=== PATIENT | female | born 2000 | race Caucasian/White ===

== ENCOUNTER 2023-01-11 11:01 | Outpatient (CLI) | payer BC, SELFPAY | END 2023-01-11 11:02 | disposition home or self-care (01) | PROVIDERS: Visit Provider Nurse Practitioner Family | DX: J02.9 Acute pharyngitis, unspecified (principal); R30.0 Dysuria; N39.0 Urinary tract infection, site not specified | CPT/HCPCS: 87086; 87186 ==

== ENCOUNTER 2023-01-11 19:05 | Emergency (ER) | payer BC, OTHER, SELFPAY ==
[2023-01-11] VITALS (9 sets, daily range): BP systolic 100–123; BP diastolic 59–80; PULSE 104–150; RESP 18; TEMP 38–38.5; O2SAT 99–100
[2023-01-11 19:22] LABS: Appearance Urine Cloudy (Clear); Bilirubin Urine Negative (Negative); Blood Urine 2+ (Negative); Color Urine Yellow (Yellow); Glucose Urine Negative (Negative); Ketones Urine Negative (Negative); Leukocyte Esterase Urine 2+ (Negative); Nitrite Urine Negative (Negative); Protein Urine 2+ (Negative); Specific Gravity Urine 1.025 (1.000-1.030)
[2023-01-11 19:34] LABS: WBC Urine 50-100 (0-5)
[2023-01-11 19:35] LABS: Bacteria Urine Moderate; Squamous Epithelial Cell Urine Few (None-Few)
[2023-01-11] MEDS: 0.9 % SODIUM CHLORIDE 1000 ml 1,000 ML IV (20:00)
--- NOTE | 2023-01-11 20:04 | ED.GENADULT ---
HPI - General Adult General Chief complaint: Flank Pain Stated complaint: UTI, possible kidney infection Time Seen by Provider: 01/11/23 19:31 History of Present Illness HPI narrative: This 22-year-old female comes in with abdominal pain and flank pain and was seen in urgent care earlier today. She was diagnosed with the urinary tract infection and started 1 dose of Keflex. She comes in here because she is not feeling any better and in fact has tachycardia and fever. She states that her symptoms of dysuria were rather mild and started a couple weeks ago. She states that she is about 5 weeks and at that time and over the next few weeks she was thinking this might of had to do with her . However in the last 2 or 3 days she has had more symptoms and last night developed a fever. Related Data Previous Rx's Medication Instructions Recorded cephalexin 500 mg tablet 500 mg PO BID #14 tabs 01/11/23 Allergies Allergy/AdvReac Type Severity Reaction Status Date / Time sulfamethoxazole Allergy Mild Hives Verified 01/11/23 12:14 [From Bactrim] trimethoprim [From Bactrim] Allergy Mild Hives Verified 01/11/23 12:14 Review of Systems Status of ROS: Reports: 10 or more systems reviewed and unremarkable except as noted in History and below Narrative: Constitutional: No weight gain or loss. Fever since last night. Eyes: No discharge. No vision changes. HENT: No congestion, no sore throat, no ear pain. Cardiovascular: No chest pain, no palpitations. Respiratory: No shortness of breath, no wheezes, no cough. Gastrointestinal: No vomiting, no diarrhea. Lower abdominal pain and flank pain. Genitourinary: No dysuria, no hematuria. Musculoskeletal: Normal range of motion. Skin: No rashes, no pruritis. Neurological: No dizziness, weakness, sensory change, speech change. Endo/Heme/Allergies: No bruising or bleeding. No polydipsia. Pysch: no suicidality, no anxiety, no insomnia. All other systems reviewed and are negative. [facility] Medical History (Updated 01/11/23 @ 21:59 by Pierre Temple MD) UTI (urinary tract infection) ?N39.0 - Urinary tract infection, site not specified (ICD-10) Runny nose ?R09.89 - Other specified symptoms and signs involving the circulatory and respiratory systems (ICD-10) Dysuria ?R30.0 - Dysuria (ICD-10) Fever ?R50.9 - Fever, unspecified (ICD-10) Social History Smoking Status: Never smoker Exam Narrative: Exam Narrative: Constitutional: Well-developed, well-nourished, no acute distress. HEENT: Normocephalic, atraumatic. Neck: Normal range of motion. Nontender. Supple. Heart: Regular. No murmurs. Normal rate. Intact distal pulses. Lungs: Clear to auscultation. No chest discomfort. No wheezes, rhonchi, or rales. Abdomen: Normal bowel sounds. No rebound tenderness. Diffuse tenderness in the lower abdomen and flanks. Genitalia: Deferred. Back: No midline tenderness. Normal range of motion. Extremities: Normal range of motion. No injury. Skin: Intact. No rash. Warm. No erythema or pallor. Neurologic: No altered sensation. No weakness. Alert and oriented. Psychiatric: No suicidality. No anxiety or depression. No insomnia. Nursing notes and vitals signs are reviewed. Const: Vital Signs, click to edit/add: Vital Signs - 24 hr 01/11/23 19:21 01/11/23 19:49 01/11/23 20:30 Temperature 100.4 F H Pulse Rate 126 H 104 H Pulse Rate [Left P ulse Oximeter] 150 H Respiratory Rate 18 18 Blood Pressure 114/80 Blood Pressure [Ri ght Upper Arm] 123/73 Pulse Oximetry 99 99 100 Oxygen Delivery Me thod Room Air 01/11/23 20:45 01/11/23 21:00 01/11/23 21:11 Temperature 101.3 F H Pulse Rate 109 H 111 H 109 H Pulse Rate [Left P ulse Oximeter] Respiratory Rate 18 Blood Pressure 100/59 L Blood Pressure [Ri ght Upper Arm] Pulse Oximetry 100 100 99 Oxygen Delivery Me thod Course Vital Signs Vital signs: Initial Vital Signs Temperature 100.4 F H 01/11/23 19:21 Temperature Source Temporal Artery Scan 01/11/23 19:21 Pulse Rate 150 H 01/11/23 19:21 Pulse Rhythm Regular 01/11/23 19:21 Respiratory Rate 18 01/11/23 19:21 Blood Pressure 123/73 01/11/23 19:21 Blood Pressure Mean 89 01/11/23 19:21 Blood Pressure Position Sitting 10/18/23 19:21 Pulse Oximetry 99 01/11/23 19:21 Oxygen Delivery Method Room Air 01/11/23 19:21 Vital Signs Temperature 100.4 F H 01/11/23 19:21 Pulse Rate 150 H 01/11/23 19:21 Respiratory Rate 18 01/11/23 19:21 Blood Pressure 123/73 01/11/23 19:21 Pulse Oximetry 99 01/11/23 19:21 Oxygen Delivery Method Room Air 01/11/23 19:21 Temperature 101.3 F H 01/11/23 21:11 Pulse Rate 109 H 01/11/23 21:11 Respiratory Rate 18 01/11/23 21:11 Blood Pressure 100/59 L 01/11/23 21:11 Pulse Oximetry 99 01/11/23 21:11 Oxygen Delivery Method Room Air 01/11/23 19:21 Medical Decision Making MDM Narrative Medical decision making narrative: This patient comes in with fever and tachycardia with an established urinary tract infection. She has taken 1 dose of Keflex but comes in because of these symptoms. An IV was established and she received a L of normal saline intravenously. Lab results returned with evidence of urinary tract infection on urinalysis. Her white count is a bit elevated at 12.7. Her lactate returns at 0.6. The patient did receive a g of Rocephin intravenously after blood cultures are acquired. She also received 15 mg of Toradol for back pain. An additional 500 mL of normal saline was administered intravenously. A this patient is okay to be discharged home and does have the remaining course of Keflex that she can continue. Blood culture results of course are pending. Lab Data Labs: Lab Results 01/11/23 01/11/23 01/11/23 Range/Units 19:15 20:00 21:22 WBC 12.69 H (4.50-11.00) K/uL RBC 4.22 (4.00-5.20) m/uL Hgb 13.0 (12.0-16.0) gm/dL Hct 38.5 (33.0-51.0) % MCV 91 (80-100) fL MCH 31 (26-34) pg MCHC 34 (32-36) gm/dL RDW Coeff of Antonina 11.5 (11.5-15.5) % Plt Count 218 (140-440) K/uL Neut % (Auto) 83.8 H (42.0-72.0) % Lymph % (Auto) 7.1 L (20-44) % [place] % (Auto) 8.7 (0.0-11.0) % Eos % (Auto) 0.1 (0.0-7.0) % Baso % (Auto) 0.1 (0.0-3.0) % Neut # (Auto) 10.60 H (1.7-7.0) K/uL Lymph # (Auto) 0.90 (0.90-2.90) K/uL [place] # (Auto) 1.10 H (0.00-0.90) K/UL Eos # (Auto) 0.00 (0.00-0.50) K/uL Baso # (Auto) 0.00 (0.00-0.30) K/uL Abs Immat Gran (auto) 0.00 (0.00-0.30) K/uL Imm/Tot Granulo (auto) 0.2 % Sodium 133 L (135-149) mmol/L Potassium 3.5 L (3.6-5.1) mmol/L Chloride 98 (96-114) mmol/L Carbon Dioxide 22 (20-32) mmol/L Anion Gap 13 (7-15) mEq/L BUN 6 (5-24) mg/dL Creatinine 0.6 (0.5-1.5) mg/dL Estimated GFR 128 ml/min Glucose 110 (60-115) mg/dL Lactate 0.6 (0.5-1.9) mmol/L Calcium 9.3 (8.4-10.6) mg/dL C-Reactive Protein 8.9 H (0.5-1.0) mg/dL Urine Color Yellow (Yellow) Urine Appearance Cloudy A (Clear) Urine pH 6.0 (5.0-8.5) Ur Specific [place] 1.025 (1.000-1.030) Urine Protein 2+ A (Negative) Urine Glucose (UA) Negative (Negative) Urine Ketones Negative (Negative) Urine Blood 2+ A (Negative) Urine Nitrite Negative (Negative) Urine Bilirubin Negative (Negative) Urine Urobilinogen 1.0 (0.2-1.0) Ur Leukocyte Esterase 2+ A (Negative) Urine RBC 10-25 A (0-2) Urine WBC 50-100 A (0-5) Ur Squamous Epith Cells Few (None-Few) Urine Bacteria Moderate A (None) Discharge Plan Discharge Clinical Impression: UTI (urinary tract infection) Patient Disposition: Home w/ Parent or Adult Condition: Stable Additional Instructions: Take medications as prescribed. Follow up with MD or return if symptoms are persistent or worsening. Prescriptions: No Action cephalexin 500 mg tablet 500 mg PO BID Qty: 14 0RF Follow Up/Referrals: Provider,Not a Local [Primary Care Provider] - Stand Alone Forms: [employer] Info Instructions
[2023-01-11 20:15] LABS: Basophils Percent Auto 0.1 % (0.0-3.0); Eosinophils Percent Auto 0.1 % (0.0-7.0); Hematocrit 38.5 % (33.0-51.0); Immature Granulocytes Pct Auto 0.2 %; Lymphocytes Percent Auto 7.1 % (20-44); Mean Corpuscular HGB Conc 34 gm/dL (32-36); Mean Corpuscular Hemoglobin 31 pg (26-34); Mean Corpuscular Volume 91 fL (80-100); Monocytes Percent Auto 8.7 % (0.0-11.0); Neutrophils Percent Auto 83.8 % (42.0-72.0); Platelet Count* 218 K/uL (140-440); RDW Coefficient of Variation % 11.5 % (11.5-15.5); Red Blood Count 4.22 m/uL (4.00-5.20); White Blood Count* 12.69 K/uL (4.50-11.00)
[2023-01-11 20:16] LABS: Slide Review Reflex No
[2023-01-11] MEDS: cefTRIAXone 1 GM in 0.9 % SODIUM CHLORIDE Mini-bag 100 ML IVPB (20:18)
[2023-01-11] MEDS: ACETAMINOPHEN 500 MG TABLET 1000 MG PO (20:18)
[2023-01-11 20:33] LABS: Chloride* 98 mmol/L (96-114); Potassium* 3.5 mmol/L (3.6-5.1); Sodium* 133 mmol/L (135-149)
[2023-01-11 20:36] LABS: Anion Gap 13 mEq/L (7-15); Blood Urea Nitrogen* 6 mg/dL (5-24); Carbon Dioxide* 22 mmol/L (20-32); Creatinine* 0.6 mg/dL (0.5-1.5); Estimated Glomerular Filt Rate 128 ml/min; Glucose* 110 mg/dL (60-115)
[2023-01-11 20:37] LABS: Calcium* 9.3 mg/dL (8.4-10.6)
[2023-01-11 20:39] LABS: C Reactive Protein* 8.9 mg/dL (0.5-1.0)
[2023-01-11 21:24] LABS: Lactate* 0.6 mmol/L (0.5-1.9)
[2023-01-11] MEDS: 0.9 % SODIUM CHLORIDE 500 ML 500 ML IV (21:48)
== END 2023-01-11 22:05 | disposition home or self-care (01) ==
PROVIDERS: Emergency Provider Emergency Medicine Emergency Medical Services
DX: N39.0 Urinary tract infection, site not specified (principal)
CPT/HCPCS: 36415; 80048; 81001; 83605; 85025; 86140; 87040; 87086; 87186; 96365; 99284; A9270; J0696; J7030; J7120

== ENCOUNTER 2023-02-06 08:08 | Outpatient (CLI) | payer BC, OTHER, SELFPAY ==
--- NOTE | 2023-02-06 08:15 | CRLHL7_ITS ---
For Patients: As a result of the Cures Act, medical imaging exams and procedure reports are released immediately into your electronic medical record. You may view this report before your referring provider. If you have questions, please contact your health care provider. INDICATION: First trimester scan, establish dates. COMPARISON: None. TECHNIQUE: Real-time bah-scale imaging of the pelvis was performed. FINDINGS: Sonographic imaging demonstrates a single living intrauterine gestation. The embryo demonstrates a regular cardiac rate measuring 161 beats per minute. The embryo`s crown-rump length measurement of 1.5 cm corresponds to a gestational age of 7 weeks 6 days with a sonographic due date of 09/19/2023. There is a normal-appearing yolk sac. There are no gross abnormalities noted within the embryo at this early state of development. The gestational sac has a normal appearance. There is a right-sided perigestational hemorrhage measuring 1.8 x 1.2 x 0.8 cm and a 2nd right-sided perigestational hemorrhage measuring 2.2 x 1.0 x 0.8 cm. The amount of fluid within the sac appears appropriate for gestational age. The cervix is closed. The myometrium appears normal. The ovaries are of normal size. There are no suspicious fluid collections noted in the cul-de-sac. IMPRESSION: Single living intrauterine with sonographic gestational age 7 weeks 6 days and sonographic due date 09/19/2023. Two right-sided subchorionic hemorrhages measuring 1.8 cm and 2.2 cm. Dictated by Ralph Malave MD @ 02/06/2023 8:50:06 AM (Electronically Signed)
== END 2023-02-06 08:09 | disposition home or self-care (01) ==
LOC: US 08:09
PROVIDERS: Visit Provider Advanced Practice Midwife
DX: Z34.91 Encounter for supervision of normal pregnancy, unspecified, first trimester (principal); O20.9 Hemorrhage in early pregnancy, unspecified; Z3A.01 Less than 8 weeks gestation of pregnancy
CPT/HCPCS: 76817; 82306; 86703; 86706; 86803; 86850; 86900; 86901; 87086; 87340

== ENCOUNTER 2023-02-06 09:03 | Outpatient (CLI) | payer BC, OTHER, SELFPAY | END 2023-02-06 09:04 | disposition home or self-care (01) | PROVIDERS: Visit Provider Advanced Practice Midwife | DX: Z34.91 Encounter for supervision of normal pregnancy, unspecified, first trimester (principal); Z3A.08 8 weeks gestation of pregnancy | CPT/HCPCS: 82306; 86592; 86703; 86704; 86706; 86762; 86787; 86803; 86850; 86900; 86901; 87086; 87340 ==

== ENCOUNTER 2023-04-27 09:20 | Outpatient (CLI) | payer BC, OTHER, SELFPAY ==
--- NOTE | 2023-04-27 09:30 | CRLHL7_ITS ---
For Patients: As a result of the Century Cures Act, medical imaging exams and procedure reports are released immediately into your electronic medical record. You may view this report before your referring provider. If you have questions, please contact your health care provider. INDICATION: Evaluate anatomy. COMPARISON: none TECHNIQUE: Real time bah scale imaging of the fetus was performed as well as color Doppler analysis of the umbilical vessels. FINDINGS: Sonographic imaging demonstrates a single living intrauterine gestation. Fetus demonstrates a regular cardiac rate of 142 beats per minute. Fetus has a variable position. The placenta lies anteriorly without evidence of placenta previa. Placental edge 4.5 cm from the internal cervical os. Amniotic fluid volume appears normal. Single deepest vertical pocket: 4.6 cm. The cervix is closed and measures 4.2 cm in length. The composite ultrasound gestational age is calculated at 19 weeks 4 days with an estimated sonographic due date of 09/17/2023. The estimated weight is 296 grams which lies at the 20th %. The following biometric measurements were obtained: Biparietal diameter: 4.3 cm/19 weeks 0 days 13th% Head circumference: 16.8 cm/19 weeks 3 days 18th% Abdominal circumference: 13.4 cm/18 weeks 6 days 14th% Femur length: 3.3 cm/20 weeks 1 day 50th% The HC/AC ratio measures: 1.25 range (1.08-1.26) On anatomic survey, there is a normal appearance of the cerebral ventricles, cavum septi pellucidi, cisterna magna and cerebellum. The nose, lips, and facial profile appear normal. The cervical, thoracic and lumbar spine are well visualized and appear normal. There is an echogenic focus within the left ventricle. The left and right ventricular outflow tracts appear normal. The diaphragm and stomach appear normal. The kidneys and bladder also appear normal. There is a normal three-vessel cord and cord insertion site. The four extremities appear normal. IMPRESSION: Concordance of clinical and sonographic dating. Echogenic focus within the left ventricle. Incomplete visualization of the profile due to position. Short-term follow-up versus level 2 ultrasound recommended. Remainder of the anatomic survey is normal. Dictated by Ralph Malave MD @ 04/27/2023 12:05:57 PM (Electronically Signed)
== END 2023-04-27 09:21 | disposition home or self-care (01) ==
LOC: US 09:20
PROVIDERS: Visit Provider Advanced Practice Midwife
DX: Z34.92 Encounter for supervision of normal pregnancy, unspecified, second trimester (principal); Z3A.19 19 weeks gestation of pregnancy
CPT/HCPCS: 76805

== ENCOUNTER 2023-05-24 07:16 | Outpatient (CLI) | payer BC, OTHER, SELFPAY ==
--- NOTE | 2023-05-24 07:15 | US_ITS ---
Patient: DULCE DOYLE Facility:?[facility] Patient ID:?[id number] Site Patient ID:?[id number]. Site :?[id number] Study:?US-OB Pelvis f/u missing images-05/24/2023 8:04:53 AM Ordering Physician:NATHALIA Final Report: INDICATION: Follow-up profile COMPARISON: 04/27/2023 TECHNIQUE: Real time bah scale imaging of the fetus was performed. FINDINGS: Sonographic imaging demonstrates a single living intrauterine gestation. Fetus demonstrates a regular cardiac rate of 141 beats per minute. Fetus has a vertex position. The placenta lies anteriorly. Amniotic fluid volume appears normal. Normal profile. Echogenic focus within the left ventricle is less noticeable on the current study and may represent normal anatomy. IMPRESSION: Normal profile. Decreased conspicuity of the echogenic left ventricular focus. Dictated by Ralph Malave MD @ 05/24/2023 12:15:44 PM Signed by:?Ralph Malave MD @05/24/2023 12:15:44 PM (Electronic Signature)
== END 2023-05-24 07:17 | disposition home or self-care (01) ==
LOC: US 07:17
PROVIDERS: Visit Provider Advanced Practice Midwife
DX: Z34.90 Encounter for supervision of normal pregnancy, unspecified, unspecified trimester (principal)
CPT/HCPCS: 76816

== ENCOUNTER 2023-06-19 08:48 | Outpatient (CLI) | payer BC, OTHER, SELFPAY | END 2023-06-19 08:49 | disposition home or self-care (01) | LOC: NFLDREF 06-23 08:10 | PROVIDERS: Visit Provider Advanced Practice Midwife | DX: Z34.02 Encounter for supervision of normal first pregnancy, second trimester (principal); Z3A.27 27 weeks gestation of pregnancy | CPT/HCPCS: 82306; 82728; 86592 ==

== ENCOUNTER 2023-07-18 11:43 | Outpatient (RCR) | payer BC, SELFPAY ==
--- NOTE | 2023-07-13 09:32 | PC.NURSE ---
Diagnosis: VERO in
--- NOTE | 2023-07-13 13:34 | URNOTE ---
Request received for authorization for?Iron Dextran (Infed) ([id number]). Prior authorization is not required per primary insurance [facility] Ref#[id number], date range: 07/11/2023 to 09/07/2023, 1 visit. Secondary insurance R reports Prior authorization is not required Ref#[id number].
[2023-07-18] MEDS: 0.9 % SODIUM CHLORIDE 250 ml IV (12:25)
[2023-07-18] MEDS: SODIUM CHLORIDE 0.9 % (FLUSH) 10 ML SYRINGE IVF (12:25)
[2023-07-18 12:31] VITALS: BP 97/64; PULSE 93; RESP 16; TEMP 36.9; O2SAT 98
[2023-07-18] MEDS: IRON DEXTRAN COMPLEX 25 MG in 0.9 % SODIUM CHLORIDE 100 ml 100 ML 400 MG IVPB (12:34)
[2023-07-18 13:10] VITALS: BP 96/62; PULSE 92; RESP 16; TEMP 36.8; O2SAT 97
[2023-07-18 13:38] VITALS: BP 92/61; PULSE 90; RESP 16; TEMP 36.8; O2SAT 97
[2023-07-18] MEDS: IRON DEXTRAN COMPLEX 975 MG in 0.9 % SODIUM CHLORIDE 250 ml 250 ML 269.5 MG IVPB (13:52)
[2023-07-18 14:52] VITALS: BP 95/60; PULSE 86; RESP 16; TEMP 36.8; O2SAT 97
[2023-07-18 15:29] VITALS: BP 96/61; PULSE 86; RESP 16; TEMP 36.8; O2SAT 97
== END 2024-01-14 23:59 | disposition home or self-care (01) ==
LOC: CCIC 11:43
PROVIDERS: PCP Family Medicine; Visit Provider Clinical Nurse Specialist
DX: D50.9 Iron deficiency anemia, unspecified (principal)
CPT/HCPCS: 96365; 96366; J1750; J7050

== ENCOUNTER 2023-08-22 15:24 | Outpatient (CLI) | payer BC, OTHER, SELFPAY | END 2023-08-22 15:25 | disposition home or self-care (01) | LOC: NFLDREF 15:26 | PROVIDERS: PCP Family Medicine; Visit Provider Advanced Practice Midwife | DX: O99.013 Anemia complicating pregnancy, third trimester (principal) | CPT/HCPCS: 82728; 87081; 87653 ==

== ENCOUNTER 2023-09-21 17:09 | Inpatient (IN) | payer BC, OTHER, SELFPAY ==
[2023-09-21] VITALS (17 sets, daily range): BP systolic 101–119; BP diastolic 62–73; PULSE 63–114; RESP 16; TEMP 37; O2SAT 90–100; BMI 31.0
[2023-09-21] MEDS: OXYTOCIN 10 UNIT/ML INJ IM (18:15)
[2023-09-21] MEDS: IBUPROFEN 600 MG TABLET PO (18:27)
[2023-09-21] MEDS: miSOPROStoL 800 MCG/4 TABLET PR (18:32)
[2023-09-21] MEDS: lidocaine HCL 2 % JELLY (TOP) STERILE 6 ML TOPICAL ×2 (18:41→19:13)
[2023-09-21] MEDS: fentaNYL 100 MCG/2 ML inj 50 MCG IVP (19:07)
[2023-09-21] MEDS: LACTATED RINGERS 1000 ML 1,000 ML IV (19:11)
[2023-09-21] MEDS: LIDOCAINE 1 % PF 30 ML INJECTION (19:13)
--- NOTE | 2023-09-21 20:11 | P.LDBA_ITS ---
Subjective History of Present Illness Date Seen: 09/21/23 Narrative: Adrianna is being admitted to Labor and Delivery for active labor. She is a 23 year old at 41.0 weeks gestation. Her full history and physical was dictated by Angelo Sung CNM on 08/29/23. Please see this for details. Adrianna labored at home for most of the starting to contract around 0500 this morning. She became more active around 1540 and was coping well at home supported by her sister in law and her . She experienced SROM at home at 1610 and decided to make her way in to the hospital. She was beginning to feel like she was involuntarily pushing on the drive in. I arrived shortly after she arrived and she was pushing at that time. Specific Issues/Plans center RN : Ajay H&P 08/29/23 by Angelo Sung CNM # Hx recurrent UTIs. x1 before NOB # Varicella non immune # Echogenic foci in left ventricle and no profile due to position. Mat21: negative Repeat US profile views obtained, foci less prominent. # Anemia. Hgb normal, low ferritin. Iron transfusion at 31 weeks. Hgb and ferritin at 36 weeks: Flu: completed, patient is employee in the Center, hasn't shown up in [facility] yet Covid: initial series, declines booster Tdap: declined, 07/05/2023 32wk Mental Health: 34wk Hgb: 07/19/2023 OB - Problem Based A/P Additional Plan (1) Pain during labor: Status: Acute (2) 41 weeks gestation of : Status: Acute Plan ASSESSMENT:? at 41.0 weeks gestation? GBS negative? ?compilcated by: varicella non-immune, echogenic foci in left ventricle, and amenia Elevated BP on admit? Postterm IOL? Blood type:? PLAN:? 1. Desires water . Consent signed. Hep C negative.? 2. Candidate for analgesia of choice. Planning unmedicated .? 3. Anticipate ? 4. Expectant management at this time.? 5. No IV needed at this time. Consider if patient condition changes. 6. Continuous monitoring until reactive tracing is obtained. Delivery/Labor/Induction Plan Plan: expectant management OB Result Labs Blood Type: O (+) positive GBS Status: negative OB Exam Physical Exam Vital signs: Pulse BP Pulse Ox 114 H 119/69 100 09/21/23 20:03 09/21/23 20:03 09/21/23 18:48 Narrative: Psychiatric:? Alert and oriented x3? HEENT:? Normocephalic, atraumatic? Neck:? Supple without adenopathy or thyromegaly? Lungs:? Clear to auscultation bilaterally? Heart:? Regular rate and rhythm, no murmur, rub or gallop? Abdomen:? Soft, nontender, and gravid? Extremities:? No edema or erythema Detailed Labor and Delivery Exam Patient Gravid: Yes Dilation (cm): 10 Effacement (%): 100 Contraction Frequency: 2-3 min Contraction intensity: Strong/Firm Fetus (Single) Station: +2 Amniotic Membrane Status: SROM Amniotic Membrane Fluid Description: Clear Heart Rate Baseline: 140 Monitor Accelerations: Present Monitor Decelerations: Variable (with pushing) Sanitary Aide Variability: Moderate (6-25)
[2023-09-21] MEDS: ACETAMINOPHEN 500 MG TABLET 1000 MG PO (20:15)
--- NOTE | 2023-09-21 20:19 | P.OBCN_ITS ---
OB - CN: HPI Date of Consult Time Seen by Provider: 20:19 Date Seen: 09/21/23 Consult date: 09/21/23 Requesting Physician: Niru Sung CNM Primary Care Provider: Milena Meza MD Consult Narrative Narrative: Adrianna is a 23-year-old at 41 weeks 0 days gestational age who was admitted with spontaneous onset of labor. She had a normal spontaneous vaginal delivery with Niru Sung CNM. Ob consultation was requested in the setting of suspected third-degree perineal laceration. I presented the bedside, where physical exam was performed. A shallow 3A degree laceration was identified with tearing only of the external anal sphincter capsule and minimal sheering of the muscle itself. Findings were relayed to Adrianna, where we discussed potential analgesic measures. Ultimately, we proceeded with IV placement to administer Fentanyl, topical lidocaine and injection of 1% plain lidocaine as well. Third-degree laceration repair completed as below. History History 1 Elective abortions Para 0 Spontaneous abortions Hx # Term Pregnancies Ectopic pregnancies Hx # Pregnancies Multiple births Number of Living Children 0 Labs GBS status: negative OB Labs: Lab Assessment Start: 09/21/23 18:20 Freq: ONCE Status: Active Protocol: PC.OBGBS Activity Type Activity Date Activity User E-sign Co-sign Detail Recorded Client Recorded Date Recorded By Document 09/21/23 19:43 ABP [id number] 09/21/23 19:43 ABP 09/21/23 19:43 Lab Assessment GBS Status negative GBS Additional Criteria None No Treatment Needed OK Are Labs Available Yes Maternal Blood Type O Maternal RH Factor Positive Evaluate Maternal Rubella Immune Status Immune Hepatitis B Surface Antigen Negative Maternal HIV Status Negative Maternal Syphillis (RPR) Status Negative [facility] Medical History UTI (urinary tract infection) ?N39.0 - Urinary tract infection, site not specified (ICD-10) Surgical History [place] teeth removed ?K08.409 - Partial loss of teeth, unspecified cause, unspecified class (ICD- 10) Family History Paternal Grandfather Prostate cancer Heart disease Maternal Grandfather Colon cancer Heart disease Maternal Grandmother Heart disease Paternal Grandmother Brain cancer Social History Narrative: SOCIAL Education: bachelors Work: center RN Partner: Ajay haney Lives with: Pets: none Abuse: Denies past Special Diet: Denies Ok with a blood transfusion: yes Culture or restoration beliefs: denies RISK FACTORS Exercise Times/wk: walking Depression/Anxiety: denies ELFEGO: 4 PHQ 9: 4 Seat Belt Use: Routinely Smoking: Denies past/present Alcohol/day: Denies while Caffeine: occasionally Drug Use: Denies past/present Chicken Pox: vaccinated MRSA: Denies What is your current living situation?: I presently have a place to live Problems where you live: no known problems In the past 12 months, utilities in danger of being shut off: no In past 12 months, lack of transportation kept you from medical appts, meetings, work, or getting things needed for daily living: no In the past 12 mos, have been you worried that your food would run out before yo u had money to buy more?: never true In the past 12 mos, the food you bought just didn't last and you didn't have money to buy more?: never true Smoking Status: Never smoker Do you use any of these nicotine containing products: None How often do you have a drink containing alcohol: never AUDIT-C Alcohol total score: 0 Non-prescribed substance use: denies use How often does anyone, including family, friends and others, physically hurt you : never How often does anyone, including family, friends and others, insult or talk down to you: never How often does anyone, including family, friends and others, threaten you with harm: never How often does anyone, including family, friends and others, scream or curse at you: never Little interest or pleasure in doing things: not at all Feeling down, depressed, or hopeless: not at all Meds Home Medications and Allergies Home Medications ?Medication ?Instructions ?Recorded ?Confirmed ?Type Saccharomyces boulardii 250 mg 250 mg PO BID 02/06/23 09/20/23 History capsule (Daily Probiotic (S. boulardii)) biotin 5 mg capsule 5 mg PO QDAY 02/06/23 09/20/23 History omega-3 fatty acids 500 mg capsule 500 mg PO QDAY 02/06/23 09/20/23 History vits no.126-ferrous fum 1 tab PO QDAY 02/06/23 09/20/23 History 28 mg iron-folic acid 800 mcg tablet (Classic ) ferrous sulfate 27 mg iron tablet 27 mg PO QDAY 07/17/23 09/20/23 History Allergies Allergy/AdvReac Type Severity Reaction Status Date / Time sulfamethoxazole Allergy Mild Hives Verified 09/20/23 10:29 [From Bactrim] trimethoprim [From Bactrim] Allergy Mild Hives Verified 09/20/23 10:29 OB - H&P: Exam Physical Exam: Vital signs: Pulse BP Pulse Ox 78 115/67 100 09/21/23 20:13 09/21/23 20:13 09/21/23 18:48 Narrative: General: Alert and oriented, moderate distress due to pain Perineum: Exam notable for laceration in the distal vagina extending to mill oiler ior perineum. With adequate pain control, more thorough exam did reveal separation of the external anal sphincter capsule and sheering of the external anal sphincter musculature, <10%. Internal anal sphincter was noted to be intact. The overlying skin was torn to about 1cm above the anal verge. Explained that my findings are most consistent with a 3A laceration, pain control was achieved with IV fentanyl, topical lidocaine and 1% lidocaine injection (15mL total). The torn edges of the external anal sphincter and capsule were grasped and brought together in the midline with a interrupted [id number] stitch wi2-0 vicryl in an end-to-end fashion. Excellent reapproximation of the torn capsule and muscular sheering was obtained. Several deep interrupted sutures of 2-0 vicryl were then placed to reapproximate the deep vaginal tissue. A 3-0 vicryl was then used in a running fashion to close the vaginal mucosa, with crown stitch applied at the perineum and down the posterior perineum. The same stitch was then run up the posterior perineum in a running subcuticular fashion to reapproximate the skin. Stitch was tied just inside the hymenal ring. Exam at the conclusion confirmed that there were no mucosal defects and no suture in the rectum. Global perineal exam was then completed. Deep left labial laceration was noted with small volume bleeding. A deep [id number] was applied with 3-0 vicryl to close the deep defect. A single subcuticular stitch was applied to reapproximate torn skin edges with 3-0 vicryl. Patient tolerated the procedure well. Excellent hemostasis was noted. Sponge, instrument, and needle counts were correct at the conclusion. OB - CN: A/P Assessment and Plan (1) Type 3a perineal laceration: Status: Acute Plan Adrianna is a 23yo who is s/p uncomplicated . Ob was consulted for repair of 3A laceration. The 3A laceration was very shallow, where the external anal sphincter capsule was with <10% muscle sheering. Unremarkable 3A laceration repair performed in layers. Small deep labial laceration was repaired as well. Excellent hemostasis noted. Care was returned to primary service, Niru Sung CNM. - Discussed routine perineal cares (ceasar bottle, murali ellis ermoplast) - Ibuprofen/tylenol for pain control. Consider narcotics only for breakthrough pain. - No antibiotics indicated - Recommend bowel regimen with senokot-S or alternative for at least 2 weeks - Consider perineal check prior to dismissal and at 2 week visit with any acute concerns
--- NOTE | 2023-09-21 20:20 | W.PM.OBVAGDE ---
OB Procedure Vag Delivery Mother Details Mother Details: The patient is a 23 year-old, 1, Para 0, admitted on 09/21/23 at 41.0Days gestation. : 1 Para: 1 Weeks Gestation: 41.0 Admission Date: 09/21/23 Additional Details Amniotic Membrane Status: SROM Amniotic Membrane Rupture Date: 09/21/23 Amniotic Membrane Rupture Time: 16:10 Amniotic Membrane Fluid Description: Clear Analgesia/Anesthesia Type: None (nitrous and fentanyl used for repair only ) Waterbirth: Yes Pitcoin: Yes (AMSTL) Intrapartal Events: None Labor Onset: 15:40 Complete: 17:26 Pushin:45 (involuntarily in the car ride here) Heart: heart tones during second stage were category 2 tracing. Difficult to trace in second stage due to maternal position. Tracing was very interrupted but occasional decreases in the heart rate were heard with pushing with good variability and good return to baseline Delivery Details Delivery Date: 09/21/23 Delivery Time: 18:01 Route of delivery: Infant Gender: Female Viability: Alive; Heart Rate Present Position at Delivery: OA Delivery Details: Patient was admitted for active labor and progressed normally. SROM noted at home at 1610 with clear fluid. Patient was complete at 1610. She was involuntrayl pushing in the car on her was to the hospital at 1645. of a viable female at 1801 in hands and knees in the tub. Vertex delivered OA. No nuchal cord or shoulder. Body delivered easily and without incident. passed to mothers abdomen with a vigorous cry. Cord was clamped and cut at > 5 minutes. APGARS were 7 at one minute and 8 at five minutes respectively. Mouth was bulb suctioned. Intact placenta with a 3 vessel cord delivered spontaneously at 1813. Fundus firm. A very shallow 3A laceration identified in consultation with Dr. Salinas and was repaired by her. See her note for details. QBL 275mL in the drape and 200mL EBL in the tub for a total of 475mL. Mother and baby stable; mother plans to breastfeed. weight pending.? 1 Minute Interval Total Score: 7 5 Minute Interval Total Score: 8 Additional Details Shoulder Dystocia: No Placenta Delivery Time: 18:13 Placental Delivery Description: Spontaneous Delivery repair: Vicryl Procedure Done: Global Blood Loss: 475 Laceration: Perineal - 3rd Degree (and a 2nd degree periurethral) Episiotomy Description: None Blood Loss Measurement Type: EBL Bakri Used: No Sponge/Need Count Correct: Yes Cord Vessel Description: 3 Vessels Event Summary Status: Mother and were stable after delivery. Disposition: floor
[2023-09-22] MEDS: IBUPROFEN 600 MG TABLET PO ×4 (01:17→22:08)
[2023-09-22 03:35] VITALS: BP 105/71; PULSE 64; RESP 16; TEMP 36.8; O2SAT 96
[2023-09-22] MEDS: ACETAMINOPHEN 500 MG TABLET 1000 MG PO ×3 (04:16→19:17)
[2023-09-22 04:45] LABS: Hemoglobin* 12.2 gm/dL (12.0-16.0)
[2023-09-22] MEDS: OXYTOCIN 30 unit/500 ML in NS 30 UNIT/500 ML BAG 150 UNIT IVPB (04:45)
[2023-09-22 06:00] VITALS: BP 95/61; PULSE 70; RESP 16; O2SAT 94
[2023-09-22] MEDS: miSOPROStoL 800 MCG/4 TABLET PR (07:07)
--- NOTE | 2023-09-22 07:20 | P.OBPN_ITS ---
OB - PN:Subj Subjective Time Seen by Provider: 06:30 Date Seen: 09/22/23 Narrative: Adrianna is a 23yo seen on PPD1 from complicated by 3A laceration. Immediately she had mild intermittent atony that responded well to IM Pitocin and buccal cytotec. I was alerted by bedside RN of possibly increased bleeding in the state about 0415. She described a trickle with fundal checks and more blood staining on pads than typical but notes this is difficult to distinguish from fluid from ice packs. She notes vitals are within normal limits, patient is feeling well. She is not passing any clots. She has but up to ambulate without dizziness or lightheadedness. Voids without difficulty. PVR via bladder scan was 140 mL, where patient had minimal output on repeat would attempt. We discussed options for management, ultimately proceeded with 30 units of Pitocin LR and a hemoglobin to help obtain an objective measure of blood loss. Bedside RN called me again at 0620, where Adrianna has started to feel weak. Repeat vitals were obtained were her blood pressure was slightly lower, normal MAP, HR of 70bpm. She continues to have of a trickle sensation with movements and passed several small clots on last fundal check. I presented to the bedside, where for confirms the above history. She notes that she does not have specific dizziness or lightheadedness, rather just feels weak as she is ambulating or sitting for items. Denies chest pain or dyspnea. 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 Her most recent pad was inspected, where there is dark vaginal bleeding noted (roughly half of a dollar bill size) and two clots about the size of a nickel. OB - PN: Obj Exam Physical Exam: Vital signs: Temp Pulse Resp BP Pulse Ox O2 Del Method 98.6 F 77 16 103/73 97 Room Air 09/21/23 22:20 09/21/23 22:20 09/21/23 22:20 09/21/23 22:20 09/21/23 22:20 09/21/23 22:20 Narrative: General: Alert and oriented, in no acute distress. Appropriate to conversation. Abdomen: Fundus palpates at 1-2 above umbilicus, firm. Transabdominal ultrasound was performed, where the fundal and mid uterine endometrial stripe is very thin and homogeneous in appearance. Endometrial canal distends as you move inferiorly, where there is about a 2 cm collection of suspected blood clot throughout the lower uterine segment. No internal vascularity on Doppler assessment. Bladder is largely decompressed. Characteristic images were obtained to be scanned in the patient's chart. Pelvic: External genital exam is within normal limits. Third degree laceration and left labial lacerations are well approximated and intact. Mild edema, slight ecchymosis at distal perineal repair. Both incisions were inspected thoroughly where no bleeding is noted from incisions. I started by performing a fundal massage, where trickle of dark red blood was noted. Recommended we proceed to a bimanual exam with likely sweeping of the lower uterine segment, consent obtained. Bimanual exam reveals excellent uterine tone aside from lower uterine segment, where clot could be easily swept free of MAAME. Approximately 15 0 mL clot was expressed subsequent to this exam, no active trickle to follow. Brief TAUS was again performed, where there is improvement in the MAAME clot burden. A second bimanual exam and sweep was performed, followed by rigorous fundal massage. No appreciable return of clot or bleeding resulted. Hemostasis is appropriate for state. Recommend we continue IV pitocin bag and administer rectal cytotec for MAAME atony. Cytotec 800mcg administered ID. OB - PN: Obj Data Labs Labs: Laboratory Results - last 24 hr 09/22/23 04:35 Hgb 12.2 OB - PN: A/P Delivery Assessment and Plan (1) Type 3a perineal laceration: Status: Acute (2) Pain during labor: Status: Acute (3) 41 weeks gestation of : Status: Acute Plan [place] is a 23-year-old seen on day 1 from [facility]. Delivery was complicated by 3A laceration without a complicated repair. Immediately she had mild intermittent atony, treated with IM Pitocin and buccal cytotec. She has had increased vaginal bleeding for about 2 hours. Objective a ssessment has been limited by inability to have reliable pad weights due to concurrent leakage of fluid from ice pack. One pad was available for my review, which was suggestive of appropriate lochia - the previous pads were noted to have more blood loss. On my exam, patient is hemodynamically stable and well-appearing. Vital signs reviewed and are within normal limits, where her blood pressures are normal and heart rate is in the 70s. She denies dizziness or lightheadedness with ambulation, but does have an overall sense of weakness. Hemoglobin at 0430 was 12.2 (from 13.1 on 08/21). Transabdominal ultrasound was notable for uterine segment atony. Bimanual exam and lower uterine segment sweep was performed, with return of about 150 mL clot. Rigors fundal massage and a 2nd sweep was performed where minimal return of lochia. She has no active bleeding from the uterus nor her incisions. Plan to complete the previously initiated bag of Pitocin and 800 mcg rectal Cytotec were administered. Plan single dose of ancef 2g IV for antibiotic prophylaxis following MAAME sweep. If she continues to have increased bleeding, signs/symptoms of anemia or other concerns I recommend repeat evaluation. SBAR provided to Niru Sung and Enedina Guaman, on-call providers today. Specifically discussed that we could consider trending her hemoglobin or proceeding to a formal pelvic ultrasound to better exclude likelihood of retained products of conception. My suspicion for retained POC is low at this time, based on my transabdominal ultrasound performed now and inspection of the placenta post delivery. Patient expressed understanding and is agreeable to plan. All questions answered.
[2023-09-22] MEDS: CEFAZOLIN 2 GM in 0.9 % SODIUM CHLORIDE Mini-bag 100 ML IVPB (07:59)
--- NOTE | 2023-09-22 08:26 | P.OBPN_ITS ---
OB - PN:Subj Subjective Time Seen by Provider: 08:26 Date Seen: 09/22/23 Patient comments OB post-: tolerating diet and flatus present [place] infant status: and doing well [place] feeding status: exclusively Narrative: Adrianna is doing well at this time. She is feeling weak with movements and is somewhat pale but states that she is feeling better. She denies clots and bleeding is WNL. She would like to take a bath this morning and was encouraged to have someone with her during this. Will repeat labs at 1800 tonight unless her symptoms increase or are not starting to improve before then. Will plan for discharge home tomorrow. Her pain is well controlled with current medications.?Urinary output is adequate and she is voiding without difficulty.? She is tolerating a general diet, is passing flatus, and has not had a bowel movement.? Has scant amount of rubra lochia.? OB - PN: Obj Exam Physical Exam: Vital signs: Temp Pulse Resp BP Pulse Ox O2 Del Method 98.2 F 70 16 95/61 94 Room Air 09/22/23 03:35 09/22/23 06:00 09/22/23 06:00 09/22/23 06:00 09/22/23 06:00 09/22/23 06:00 Narrative: GENERAL APPEARANCE:? normal affect, alert, no distress? MOOD:? appropriate? CHEST:? clear to auscultation and percussion? HEART:? regular rate and rhythm? ABDOMEN:? soft, non-tender the uterine fundus is U/2 and is appropriate for the stage of recovery.? PERINEUM:? mild edema of the perineum, there is a 3A laceration that is healing well.? EXTREMITIES:? normal and no edema? OB - PN: Obj Data Labs Labs: Laboratory Results - last 24 hr 09/22/23 04:35 Hgb 12.2 OB - PN: A/P Delivery Assessment and Plan (1) Type 3a perineal laceration: Status: Acute (2) Lactating mother: Status: Acute (3) care following vaginal delivery: Status: Acute Plan day: 1 Plan: routine care Comments: Anticipate discharge home tomorrow.
[2023-09-22] MEDS: DOCUSATE SODIUM 100 MG CAPSULE PO (10:58)
[2023-09-22 11:00] VITALS: BP 100/67; PULSE 70; RESP 16; TEMP 36.6; O2SAT 98
[2023-09-22 12:00] VITALS: BP 90/60; PULSE 70; RESP 16; TEMP 36.6; O2SAT 98
[2023-09-22 16:45] VITALS: BP 92/60; PULSE 68; RESP 16; O2SAT 99
[2023-09-22 18:17] LABS: Hemoglobin* 11.3 gm/dL (12.0-16.0)
[2023-09-22 19:25] VITALS: BP 97/65; PULSE 70; RESP 18; O2SAT 96
[2023-09-23] MEDS: ACETAMINOPHEN 500 MG TABLET 1000 MG PO ×2 (02:06→08:55)
[2023-09-23] MEDS: IBUPROFEN 600 MG TABLET PO (04:50)
[2023-09-23 04:52] VITALS: BP 106/73; PULSE 68; RESP 18
--- NOTE | 2023-09-23 09:52 | PM.OBDSVD1 ---
DS: Providers Provider Date Seen: 09/23/23 Date of admission: 09/21/23 17:09 Primary care physician: Milena Meza MD Admitting Clinician: Niru Sung CNM Attending Physician on discharge: Niru Sung CNM Date of Discharge: 09/23/23 DS: Diagnosis Discharge Diagnosis (1) care following vaginal delivery: Status: Acute (2) Lactating mother: Status: Acute (3) Type 3a perineal laceration: Status: Acute Exam Narrative: Exam Narrative: GENERAL APPEARANCE:? normal affect, alert, no distress? MOOD:? appropriate? CHEST:? clear to auscultation and percussion? HEART:? regular rate and rhythm? ABDOMEN:? soft, non-tender the uterine fundus is U/2 and is appropriate for the stage of recovery.? PERINEUM:? mild edema of the perineum, there is a 3A that is healing well.? EXTREMITIES:? normal and no edema? Const: Vital Signs, click to edit/add: Vital Signs - 24 hr 09/22/23 11:00 09/22/23 12:00 09/22/23 16:45 Temperature 97.8 F 97.8 F Pulse Rate [Pulse Oximeter] 70 70 68 Respiratory Rate 16 16 16 Blood Pressure [Le ft Arm] 100/67 90/60 92/60 Pulse Oximetry 98 98 99 Oxygen Delivery Me thod Room Air Room Air Room Air 09/22/23 19:25 09/23/23 04:52 Temperature Pulse Rate [Pulse Oximeter] 70 68 Respiratory Rate 18 18 Blood Pressure [Le ft Arm] 97/65 106/73 Pulse Oximetry 96 Oxygen Delivery Me thod Room Air Room Air Documenting provider has reviewed patient's vital signs: yes OB - DS: Summary Hospital Course Hospital Course: Adrianna is a 23 year old G 1 P 1 at 41.0 weeks gestation that was admitted to the Center on 09/21/23 for spontaneous active labor. She had a vaginal delivery complicated by a 3A laceration and manual sweep for retained clots. She delivered a viable female infant. She is breast feeding d it is now going good after some initial latch complications. the patient has done well. Her pain is well controlled with current medications.? She has no new complaints.? Urinary output is adequate and she is voiding without difficulty.? Has a good appetite, is tolerating a general diet, is passing flatus, and has had a bowel movement.? Has scant amount of rubra lochia.? She is ambulating well. She is unsure what she is planning of contraception but she is thinking of doing NFP with condoms. Peripartum Data Infant delivery method: Vaginal Laceration description: Perineal - 3rd Degree Episiotomy description: None complications: uterine atony (resolved with manual sweep for clot removal) Infant Gender: Female Infant Discharge Plan: Home Status at Discharge Functional status at discharge: independent ambulation Overall status at discharge: patient is progressing back to baseline Time Spent with Patient Time attestation: Total time spent providing and/or coordinating discharge services: Discharge Plan Discharge Disposition: Home, Self-Care Date of Admission: 09/21/23 17:09 Attending Provider on Discharge: Niru Sung Primary Care Provider: Milena Meza Condition: Stable Anticipated Discharge Date/Time: 09/23/23 10:00 Discharge Medications: New docusate sodium 100 mg Capsule 100 mg PO DAILY Qty: 90 0RF Rx Instructions: Take 1-2 tablets daily as needed for constipation. ibuprofen 600 mg Tablet 600 mg PO Q6H PRNQty: 30 0RF Continued ferrous sulfate 27 mg iron tablet 27 mg PO QDAY Hold Instructions: didn't take today due to iron infusion Classic 28 mg iron- 800 mcg tablet 1 tab PO QDAY biotin 5 mg capsule 5 mg PO QDAY omega-3 fatty acids 500 mg capsule 500 mg PO QDAY Saccharomyces boulardii [Daily Probiotic (S. boulardii)] 250 mg capsule 250 mg PO BID Discharge Orders: Discharge Order (Routine); Ordered 09/23/23 Ordered By: Niru Sung Patient Education: OB Vaginal/Breast Feeding Additional Instructions: Discharge instructions were reviewed with the patient including signs and symptoms of infection and home going medications.?? Off Work or School for 6 weeks.? ?? Symptoms to report to doctor:? -Bleeding that saturates more than one pad per hour? -Passing clots larger than the size of a golf ball? -Pain not relieved by prescribed medication? -Fever above 100.4 degrees Fahrenheit? -A foul vaginal odor? -Difficulty in emotions, mood and functions? -Thoughts of hurting yourself and/or ? -Painful, reddened area in your breast? -Any drainage, redness or tenderness in your IV/epidural site? -Severe headache that doesn't improve after taking medications? -Changes in vision, including temporary loss of vision, blurred vision, and/or light sensitivity? -Upper abdominal pain (usually under ribs on the right side)? -Decrease in urination or painful, frequent urinating? -Chest pain? -Shortness of breath? -Tenderness or pain with redness and/swelling in the calf(s) of your leg? ?? Follow Up in clinic in 2 and 6 weeks.? ?? consultation services are available to all mothers and babies for the first year after delivery.? To make an appointment, please call [phone].? Activity Level: Activity as Tolerated Discharge Diet: Regular Follow Up Appointments: [facility] [Provider Group] Forms: MyHealth Info Instructions
[2023-09-23 12:00] VITALS: BP 114/67; PULSE 74; RESP 16; TEMP 36.5; O2SAT 96
== END 2023-09-23 15:50 | disposition home or self-care (01) | DRG 560 ==
PROVIDERS: Obstetrics & Gynecology; Admitting Provider Advanced Practice Midwife; PCP Family Medicine; Visit Provider Advanced Practice Midwife
DX: O48.0 Post-term pregnancy (principal); O99.02 Anemia complicating childbirth; D64.9 Anemia, unspecified; O72.1 Other immediate postpartum hemorrhage; O70.21 Third degree perineal laceration during delivery, IIIa; O70.0 First degree perineal laceration during delivery; Z3A.41 41 weeks gestation of pregnancy; Z37.0 Single live birth
CPT/HCPCS: 36415; 76815; 85018; 86592; A9270; J0690; J2001; J2590; J3010; J7120

== ENCOUNTER 2023-11-07 11:48 | Outpatient (CLI) | payer BC, OTHER, SELFPAY | END 2023-11-07 11:49 | disposition home or self-care (01) | LOC: NFLDREF 11:48 | PROVIDERS: PCP Family Medicine; Visit Provider Advanced Practice Midwife | DX: Z39.2 Encounter for routine postpartum follow-up (principal) | CPT/HCPCS: 82728 ==

== ENCOUNTER 2023-12-06 12:57 | Outpatient (CLI) | payer BC, OTHER, SELFPAY ==
--- NOTE | 2023-12-06 14:18 | P.LACCB_ITS ---
Consult Note - Mom Date of Visit Date of visit: 12/06/23 digital marketing consultant: Monica Pitt Visit Code: Visit Patient's Information Phone number: [phone] : 1 Para: 1 Allergies sulfamethoxazole [From Bactrim] Allergy (Mild, Verified 11/07/23 11:12) Hives trimethoprim [From Bactrim] Allergy (Mild, Verified 11/07/23 11:12) Hives Mother's Medical History: Medical History (Updated 10/12/23 @ 16:20 by Niru Sung CNM) care following vaginal delivery ?Z39.2 - Encounter for routine follow-up (ICD-10) Lactating mother ?Z39.1 - Encounter for care and examination of lactating mother (ICD-10) Type 3a perineal laceration ?O70.21 - Third degree perineal laceration during delivery, IIIa (ICD-10) 41 weeks gestation of ?O48.0 - Post-term (ICD-10) ?Z3A.41 - 41 weeks gestation of (ICD-10) Pain during labor ?O99.892 - Other specified diseases and conditions complicating childbirth (ICD-10) ?R52 - Pain, unspecified (ICD-10) UTI (urinary tract infection) ?N39.0 - Urinary tract infection, site not specified (ICD-10) Work Plans: return to work in about 5 weeks Delivery Information Delivery type: Vaginal Weeks Gestation: 41 Gestational Age: AGA Weight: 3.3 kg Discharge Weight: 3.192 kg Baby's Information Medications: Famotidine for reflux; was on 0.75 once a day; increased to twice a day 2 days ago Baby's Age at Visit: 11 weeks minus 1 day Baby's Provider or Clinic: Dr. Lafleur Jaundice: No Reason for Consult Reason for Consult: baby with slow weight gain, started supplementing EBM after feedings; discuss ways to increase milk transfer Past Experience Past Experience: No Current Frequency of Day Feedings: every 2.5-3 hours Frequency of Night Feedings: 4-5 hour stretches Both Breasts: No Suck: strong Latch: mom thinks good, no nipple pain Length of Time: 14-30 minutes Pumping Pumping: Yes (once a day on breast she doesn't feed from ) Quantity Pumped: 3-5 oz, average 4 Supplementing EMB Supplement: Yes (just started 1 oz after daytime feedings; not at night) Formula Supplement: No Baby Elimination Number of Wet Diapers a Day: 6 or more Number of BM a Day: 2-3 now with the supplement, had been 1 every other day or so Breast/Nipple Condition Breast Information: Breasts are symmetrical with rounded lower quadrants, intramammary distance is less than 1.5 inches. No erythema. Nipples are supple, everted prior to feeding. Mom asked for flange size to be measured for pumping. Right nipple 17mm in diameter so flange size 20-21mm; left nipple 18mm in diameter so flange size 21- 22mm. Engorgement: No Maternal Nipple Condition - Left: Common Nipple Maternal Nipple Condition - Right: Common Nipple Sore Nipples: No Onsite Pre-Feed weight: 4.266 kg Post-Feed weight: 4.374 kg Milk Transferred (mL): 108 Pre-Nursing Left Nipple: Within Normal Limits Pre-Nursing Right Nipple: Within Normal Limits Post-Nursing Left Nipple: Within Normal Limits Post-Nursing Right Nipple: Within Normal Limits Assessments/Interventions Assessments/Interventions: Reviewed mom's feeding/pumping log. Mom mainly nurses on 1 breast. She started this process early on due to an oversupply and has continuued. Pumps one time in the morning from the side she doesn't nurse on and gets 3-5 oz; if she just pumps both sides, she gets about 4 - 4.5 oz ea breast. She has no concerns about her supply at this time. She has about 200 oz EBM in her freezer. Waylon nursed for 9 min on her left breast and transferred 86 ml. Waylon then nursed for 6 min on her right breast and transferred another 22 ml. 108 ml (3.5 oz total) for this feeding in 15 minutes. Mom has been instructed to offer baby 1-2 oz of EBM after ; however she had only been nursing on one side. She has given this 1 oz after nursings for the last few days and she does think baby is more content and having increased BMs. Discussed using breast compression near the end of the feeding to assist baby to get more milk intake. Discussed she could try offering both breasts at each feeding and see if the BM patterns and contentedness remains. 2-3 times a day still offer the bottled EBM to see if baby wants/needs more. After weighing at [facility] next week, if weight gain is still good, she could then try dropping the bottle supplement and continue offering both breasts at e ach feeding. She can continue with the morning pump if desired to keep her freezer supply up. Mom feels comfortable with this plan; will check in with Dr. Lafleur and call if she has additional questions/concerns. Time spent reviewing records and face to face with mom and baby: 60 minutes Meds Home Medications and Allergies Home Medications ?Medication ?Instructions ?Recorded ?Confirmed ?Type Saccharomyces boulardii 250 mg 250 mg PO BID 02/06/23 11/07/23 History capsule (Daily Probiotic (S. boulardii)) biotin 5 mg capsule 5 mg PO QDAY 02/06/23 11/07/23 History omega-3 fatty acids 500 mg capsule 500 mg PO QDAY 02/06/23 11/07/23 History vits no.126-ferrous fum 1 tab PO QDAY 02/06/23 11/07/23 History 28 mg iron-folic acid 800 mcg tablet (Classic ) ferrous sulfate 27 mg iron tablet 27 mg PO QDAY 07/17/23 11/07/23 History Allergies Allergy/AdvReac Type Severity Reaction Status Date / Time sulfamethoxazole Allergy Mild Hives Verified 11/07/23 11:12 [From Bactrim] trimethoprim [From Bactrim] Allergy Mild Hives Verified 11/07/23 11:12
== END 2023-12-06 12:58 | disposition home or self-care (01) ==
PROVIDERS: PCP Family Medicine; Visit Provider Pediatrics
DX: Z39.1 Encounter for care and examination of lactating mother (principal)
CPT/HCPCS: G0463

== ENCOUNTER 2024-02-20 09:30 | Outpatient (RCR) | payer BC, OTHER, SELFPAY | END 2024-05-16 12:08 | disposition home or self-care (01) | PROVIDERS: PCP Family Medicine; Visit Provider Advanced Practice Midwife | DX: R10.2 Pelvic and perineal pain (principal); N81.89 Other female genital prolapse; O70.21 Third degree perineal laceration during delivery, IIIa; Z39.2 Encounter for routine postpartum follow-up; M62.08 Separation of muscle (nontraumatic), other site; K59.00 Constipation, unspecified; R29.3 Abnormal posture; Z51.89 Encounter for other specified aftercare | CPT/HCPCS: 97112; 97140; 97161 ==